=== PATIENT | male | born 1990 | race Caucasian/White ===

== ENCOUNTER 2018-01-15 09:22 | Emergency (ER) | payer OTHER ==
[~2018-01-15] VITALS: Ht 177.8 cm; Wt 69.9 kg
[2018-01-15 09:34] VITALS: Ht 177.8 cm; Wt 69.9 kg
[2018-01-15 10:44] VITALS: BP 130/77
== END 2018-01-15 10:44 | disposition home or self-care (01) ==
LOC: ED 09:22
DX: F11.23 Opioid dependence with withdrawal (principal); Z02.79 Encounter for issue of other medical certificate; Z90.89 Acquired absence of other organs